=== PATIENT | female | born 2000 | race Two or more races ===

== ENCOUNTER 2022-09-05 23:16 | Emergency (ER) | payer OTHER ==
[~2022-09-05] VITALS: Ht 154.9 cm; Wt 61.2 kg
[2022-09-05] MEDS ORDERED: FOLIC ACID1 MG PO (23:29)
[2022-09-05] MEDS ORDERED: PRENATAL CAPLE1 EAC1 PO (23:29)
[2022-09-06] MEDS ORDERED: ONDANSETRON ODT8 MG PO (19:16)
[2022-09-06] MEDS ORDERED: METRONIDAZOLE500 MG PO (19:16)
[2022-09-06] MEDS ORDERED: PEPCID AC20 MG PO (19:16)
== END 2022-09-06 19:23 | disposition home or self-care (01) ==
LOC: EMR PED 23:16 → ER 23:36 → EMR PED 23:36 → ER 09-06 19:23
DX: K52.89 Other specified noninfective gastroenteritis and colitis (principal)

== ENCOUNTER 2022-10-04 15:44 | Outpatient (CLI) | payer OTHER ==
[~2022-10-04 15:44] MED LIST: FOLIC ACID1 MG PO; METRONIDAZOLE500 MG PO; ONDANSETRON ODT8 MG PO; PEPCID AC20 MG PO; PRENATAL CAPLE1 EAC1 PO
[2022-10-04] MEDS ORDERED: ZYRTEC10 M3 PO (18:17)
[2022-10-04] MEDS ORDERED: PEPCID AC20 MG PO (22:38)
[2022-10-04] MEDS ORDERED: ONDANSETRON ODT8 MG PO (22:38)
== END 2022-10-04 16:59 | disposition home or self-care (01) ==
LOC: PRENATAL 15:44
PROVIDERS: ATTEND Obstetrics & Gynecology Maternal & Fetal Medicine
DX: O35.9XX0 Maternal care for (suspected) fetal abnormality and damage, unspecified, not applicable or unspecified (principal); O35.3XX0 Maternal care for (suspected) damage to fetus from viral disease in mother, not applicable or unspecified; Z3A.19 19 weeks gestation of pregnancy

== ENCOUNTER 2022-10-04 17:27 | Emergency (ER) | payer OTHER ==
[~2022-10-04] VITALS: Ht 160 cm; Wt 63.5 kg
[2022-10-04] MEDS ORDERED: ZYRTEC10 M3 PO (18:17)
[2022-10-04] MEDS ORDERED: PEPCID AC20 MG PO (22:38)
[2022-10-04] MEDS ORDERED: ONDANSETRON ODT8 MG PO (22:38)
== END 2022-10-04 23:11 | disposition home or self-care (01) ==
LOC: ER 17:27
DX: O21.9 Vomiting of pregnancy, unspecified (principal); Z3A.19 19 weeks gestation of pregnancy; K52.89 Other specified noninfective gastroenteritis and colitis; Z91.011 Allergy to milk products

== ENCOUNTER 2022-12-28 15:10 | Outpatient (CLI) | payer OTHER ==
[~2022-12-28 15:10] MED LIST changes: +ZYRTEC10 M3 PO
== END 2022-12-28 15:44 | disposition home or self-care (01) ==
LOC: PRENATAL 15:10
PROVIDERS: ATTEND Obstetrics & Gynecology Maternal & Fetal Medicine
DX: O26.849 Uterine size-date discrepancy, unspecified trimester (principal); O36.8199 Decreased fetal movements, unspecified trimester, other fetus; Z3A.32 32 weeks gestation of pregnancy

== ENCOUNTER 2023-01-27 05:28 | Inpatient (IN) | payer OTHER ==
[~2023-01-27] VITALS: Ht 154.9 cm; Wt 70.8 kg
[2023-01-27 08:18] LABS: PH,URINE 7.5 (5.0-8.0); URINE APPEARANCE Clear; URINE BILIRRUBIN Negative (NEGATIVE); URINE BLOOD Negative; URINE COLOR Yellow; URINE GLUCOSE Negative (NEGATIVE); URINE LEUKOCYTE Negative; URINE NITRATE Negative; URINE PROTEIN Negative (NEGATIVE); URINE UROBILINOGEN 0.2 E.U./dl
[2023-01-27 08:19] LABS: URINE BACTERIA 225.3 uL (0.0-1933); URINE EPITHELIAL CELLS 4.1 uL (0.0-38.8); URINE WBC 2.3 uL (0.0-23.2)
[2023-01-27 08:22] LABS: HEMATOCRIT 37.5 % (36.0-45.00); HEMOGLOBIN 12.9 g/dL (12.0-15.00); MEAN CELL VOLUME 84.5 fL (80.00-100.00); MEAN CORPUSCULAR HGB CONC 34.3 g/dl (32.0-36.0); PLATELET COUNT 141 K/uL (150-450); RED BLOOD COUNT 4.44 M/uL (4.00-6.00); RED CELL DISTRIBUTION WIDTH 13.7 % (11.5-14.5)
[2023-01-27 08:29] LABS: URINE RBC 1.4 uL (0.0-20.8)
== END 2023-01-29 10:31 | disposition home or self-care (01) | DRG 833 ==
LOC: OBS/DEL 05:28 → LDR 13:06 → OB/GYN 01-28 13:25
PROVIDERS: ADMIT Obstetrics & Gynecology; ATTEND Obstetrics & Gynecology
PROC: 4A1HXCZ Monitoring of Products of Conception, Cardiac Rate, External Approach (ICD-10-PCS; principal; 2023-01-27)
PROC: BY4FZZZ Ultrasonography of Third Trimester, Single Fetus (ICD-10-PCS; 2023-01-27)
DX: O60.03 Preterm labor without delivery, third trimester (principal); O26.843 Uterine size-date discrepancy, third trimester; O36.8130 Decreased fetal movements, third trimester, not applicable or unspecified; Z3A.36 36 weeks gestation of pregnancy; Z20.822 Contact with and (suspected) exposure to COVID-19

== ENCOUNTER 2023-02-11 02:38 | Outpatient (CLI) | payer OTHER ==
[2023-02-11 03:34] LABS: HEMATOCRIT 37.3 % (36.0-45.00); HEMOGLOBIN 12.6 g/dL (12.0-15.00); MEAN CELL VOLUME 84.1 fL (80.00-100.00); MEAN CORPUSCULAR HEMOGLOBIN 28.4 pg (27.00-32.0); MEAN CORPUSCULAR HGB CONC 33.7 g/dl (32.0-36.0); PLATELET COUNT 148 K/uL (150-450); RED BLOOD COUNT 4.44 M/uL (4.00-6.00); RED CELL DISTRIBUTION WIDTH 14.1 % (11.5-14.5)
[2023-02-11 03:36] LABS: URINE BACTERIA 180.1 uL (0.0-1933); URINE EPITHELIAL CELLS 4.7 uL (0.0-38.8); URINE WBC 2.9 uL (0.0-23.2)
[2023-02-11 03:37] LABS: URINE APPEARANCE Cloudy; URINE BILIRRUBIN Negative (NEGATIVE); URINE BLOOD Negative; URINE COLOR Yellow; URINE GLUCOSE Negative (NEGATIVE); URINE LEUKOCYTE Negative; URINE NITRATE Negative; URINE PROTEIN Negative (NEGATIVE)
[2023-02-11 03:38] LABS: URINE RBC 1.4 uL (0.0-20.8)
== END 2023-02-11 17:55 | disposition home or self-care (01) ==
LOC: OBS/DEL 02:38 → LDR 02:47 → OBS/DEL 08:44
PROVIDERS: ATTEND Obstetrics & Gynecology
DX: O26.893 Other specified pregnancy related conditions, third trimester (principal); Z3A.38 38 weeks gestation of pregnancy

== ENCOUNTER 2023-02-16 08:29 | Inpatient (IN) | payer OTHER ==
[~2023-02-16] VITALS: Ht 154.9 cm; Wt 70.8 kg
[2023-02-16 09:48] LABS: PH,URINE 6.5 (5.0-8.0); URINE APPEARANCE Cloudy; URINE BILIRRUBIN Negative (NEGATIVE); URINE BLOOD Negative; URINE COLOR Yellow; URINE GLUCOSE Negative (NEGATIVE); URINE LEUKOCYTE Large; URINE NITRATE Negative; URINE PROTEIN Negative (NEGATIVE); URINE UROBILINOGEN 0.2 E.U./dl
[2023-02-16 09:52] LABS: URINE EPITHELIAL CELLS 72.6 uL (0.0-38.8); URINE WBC 262.3 uL (0.0-23.2)
[2023-02-16 09:53] LABS: HEMATOCRIT 38.6 % (36.0-45.00); HEMOGLOBIN 13.4 g/dL (12.0-15.00); MEAN CELL VOLUME 83.6 fL (80.00-100.00); MEAN CORPUSCULAR HGB CONC 34.6 g/dl (32.0-36.0); RED BLOOD COUNT 4.61 M/uL (4.00-6.00)
[2023-02-16 10:08] LABS: PLATELET COUNT 144 K/uL (150-450)
[2023-02-16] MEDS ORDERED: FOLIC ACID0.8 M1 PO (10:11)
[2023-02-16 10:35] LABS: INR < 0.93; PARTIAL THROMBOPLASTIN TIME 24.9 SECONDS (22.0-34.0); PROTHROMBIN TIME 9.5 SECONDS (9.0-11.5)
[2023-02-17 00:31] LABS: HEMATOCRIT 40.5 % (36.0-45.00); HEMOGLOBIN 13.9 g/dL (12.0-15.00); MEAN CELL VOLUME 84.7 fL (80.00-100.00); MEAN CORPUSCULAR HEMOGLOBIN 29.1 pg (27.00-32.0); MEAN CORPUSCULAR HGB CONC 34.3 g/dl (32.0-36.0); PLATELET COUNT 153 K/uL (150-450); RED BLOOD COUNT 4.79 M/uL (4.00-6.00); RED CELL DISTRIBUTION WIDTH 13.8 % (11.5-14.5)
== END 2023-02-18 18:40 | disposition home or self-care (01) | DRG 807 ==
LOC: LDR 08:29 → OB/GYN 02-17 11:51
PROVIDERS: ADMIT Obstetrics & Gynecology; ATTEND Obstetrics & Gynecology
PROC: 10E0XZZ Delivery of Products of Conception, External Approach (ICD-10-PCS; principal; 2023-02-16)
PROC: 4A1HXCZ Monitoring of Products of Conception, Cardiac Rate, External Approach (ICD-10-PCS; 2023-02-16)
DX: O80 Encounter for full-term uncomplicated delivery (principal); Z37.0 Single live birth; Z3A.39 39 weeks gestation of pregnancy; Z20.822 Contact with and (suspected) exposure to COVID-19

== ENCOUNTER 2023-04-13 15:12 | Emergency (ER) | payer OTHER ==
[~2023-04-13] VITALS: Ht 154.9 cm; Wt 62.1 kg
[~2023-04-13 15:12] MED LIST changes: +FOLIC ACID0.8 M1 PO
[2023-04-13] MEDS ORDERED: ALBUTEROL0.63 MG/3 (15:35)
[2023-04-13 17:40] LABS: HEMATOCRIT 43.9 % (36.0-45.00); MEAN CELL VOLUME 83.6 fL (80.00-100.00); MEAN CORPUSCULAR HEMOGLOBIN 28.5 pg (27.00-32.0); MEAN CORPUSCULAR HGB CONC 34.1 g/dl (32.0-36.0); PLATELET COUNT 194 K/uL (150-450); RED BLOOD COUNT 5.25 M/uL (4.00-6.00); RED CELL DISTRIBUTION WIDTH 14.9 % (11.5-14.5)
[2023-04-13 17:54] LABS: CALCIUM 8.3 mg/dL (8.5-10.1); CREATININE SERUM 0.96 mg/dL (0.55-1.02); GFR 73.37; POTASSIUM 3.34 mEq/L (3.5-5.1)
== END 2023-04-14 00:04 | disposition home or self-care (01) ==
LOC: ER 15:13
PROVIDERS: Emergency Medicine
DX: K52.9 Noninfective gastroenteritis and colitis, unspecified (principal); A05.9 Bacterial foodborne intoxication, unspecified; Z91.011 Allergy to milk products